=== PATIENT | male | born 1965 | race African-American/Black ===

== ENCOUNTER 2018-02-28 11:27 | Inpatient (IN) ==
[2018-02-28] MEDS ORDERED: ONDANSETRON 4 MG/2 ML VIAL IV STA (13:00)
[2018-02-28] MEDS ORDERED: MORPHINE 4 MG/1 ML VIAL IV STA (13:00)
[2018-02-28] MEDS ORDERED: CEFTAROLINE 600 MG in SODIUM CHLORIDE 0.9% 100 ML IV STA (14:06)
[2018-02-28] MEDS ORDERED: ACETAMINOPHEN 500 MG TABLET PO STA (14:06)
[2018-02-28] MEDS ORDERED: ACETAMINOPHEN 500 MG TABLET ONE (14:07)
[2018-02-28] MEDS ORDERED: MORPHINE 4 MG/1 ML VIAL ONE (14:07)
[2018-02-28] MEDS ORDERED: ONDANSETRON 4 MG/2 ML VIAL ONE (14:07)
[2018-02-28 14:16] LABS: Basophils # 0.1 10*3/uL (0.0-0.2); Basophils % 0.3 % (0.0-0.8); Hematocrit 38.5 VOL% (42.0-52.0); Hemoglobin 11.8 GM/DL (14.0-18.0); Immature Granulocytes % 0.7 %; Immature Granulocytes Absolute 0.19 #; Lymphocytes # 1.8 10*3/uL (1.4-4.0); Lymphocytes % 6.4 % (21.2-54.2); Mean Corpuscular HGB Conc 30.6 GM/DL (32-36); Mean Corpuscular Hemoglobin 22 PG (27-34); Mean Corpuscular Volume 71.6 FL (87-102); Mean Platelet Volume 11.9 FL (9.6-12.0); Monocytes # 1.8 10*3/uL (0.11-0.8); Monocytes % 6.6 % (1.7-12.7); Neutrophils # 23.4 10*3/uL (1.4-7.4); Platelet Count 240 T/CUMM (130-400); Red Blood Count 5.38 MC/CUMM (3.8-5.5); Red Cell Distribution Width 15.3 % (9.3-17.3); White Blood Count 27.2 T/CUMM (4-12)
[2018-02-28] MEDS ORDERED: PROMETHAZINE 25 MG/1 ML VIAL IM PRN (14:22)
[2018-02-28] MEDS ORDERED: ACETAMINOPHEN 325 MG TABLET PO PRN (14:22)
[2018-02-28] MEDS ORDERED: ONDANSETRON 4 MG/2 ML VIAL IV PRN (14:22)
[2018-02-28 14:32] LABS: PT Patient Result 11.2 SECS
[2018-02-28 14:41] LABS: Band Neutrophils 9 % (0-10); Lymphocytes 5 % (20-55); Platelet Estimate Adequate; Segmented Neutrophils 80 % (50-85); Target Cells Few; Total Cells Counted 100
[2018-02-28] MEDS ORDERED: CLINDAMYCIN INJ 600 MG in PREMIX 1 EACH IV STA (14:42)
[2018-02-28 14:43] LABS: Alanine Aminotransferase 28 U/L (16-61); Albumin 3.3 G/DL (3.4-5.0); Alkaline Phosphatase 69 U/L (45-117); Aspartate Amino Transferase 23 U/L (0-37); Blood Urea Nitrogen 10 MG/DL (7-18); Calcium 8.7 MG/DL (8.5-10.1); Glucose 104 MG/DL (74-106); Osmolality,Calculated 268.1 MOS/KG (273-304); Potassium 3.9 MMOL/L (3.5-5.1); Sodium 135 MMOL/L (136-145); Total Protein 8.5 G/DL (6.4-8.3); Troponin I < 0.015 NG/ML (0.00-0.045)
[2018-02-28] MEDS ORDERED: VANCOMYCIN INJ 1,500 MG in SODIUM CHLORIDE 0.9% 500 ML IV STA (14:43)
[2018-02-28] MEDS ORDERED: SODIUM CHLORIDE 0.9% 1,000 ML IV STA (14:46)
[2018-02-28] MEDS ORDERED: SODIUM CHLORIDE 0.9% 2,000 ML IV STA (14:47)
[2018-02-28] MEDS ORDERED: CLINDAMYCIN INJ 0 ML IV ONE (14:53)
[2018-02-28] MEDS ORDERED: CLINDAMYCIN INJ 600 MG in PREMIX 1 EACH IV SCH (15:00)
[2018-02-28] MEDS ORDERED: VANCOMYCIN 1,000 MG VIAL ONE ×2 (15:05→15:12)
[2018-02-28] MEDS ORDERED: VANCOMYCIN INJ 500 MG in SODIUM CHLORIDE 0.9% 100 ML IV STA (15:33)
[2018-02-28 16:38] LABS: Apearance,Urine CLEAR (Clear); Bilirubin,Urine Negative (Negative); Blood, Urine Negative (Negative); Glucose,Urine (UA) Negative (Negative); Ketones,Urine Negative (Negative); Mucus,Urine Occasional /LPF (Occasional); Nitrite,Urine Negative (Negative); Protein,Urine 100 MG/DL; RBC,Urine 1 /HPF (0-4); Urine Color Dark yellow (Yellow); WBC,Urine 1 /HPF (0-6)
[2018-02-28] MEDS: PANTOPRAZOLE 40 MG TABLET PO SCH (18:40)
[2018-02-28] MEDS: SODIUM CHLORIDE 0.9% 1,000 ML IV SCH ×2 (19:02→22:00)
[2018-02-28] MEDS: ENOXAPARIN 40 MG/0.4 ML SYRINGE SUBCUT SCH (22:58)
[2018-03-01] MEDS: CEFTAROLINE 600 MG in SODIUM CHLORIDE 0.9% 100 ML IV SCH ×2 (02:23→14:47)
[2018-03-01] MEDS: SODIUM CHLORIDE 0.9% 1,000 ML IV SCH ×3 (03:34→12:14)
[2018-03-01 05:07] LABS: Basophils # 0.1 10*3/uL (0.0-0.2); Basophils % 0.3 % (0.0-0.8); Eosinophils % 0.3 % (0.00-10.9); Hematocrit 32.2 VOL% (42.0-52.0); Hemoglobin 9.9 GM/DL (14.0-18.0); Immature Granulocytes % 0.6 %; Lymphocytes # 1.7 10*3/uL (1.4-4.0); Lymphocytes % 11.1 % (21.2-54.2); Mean Corpuscular HGB Conc 30.7 GM/DL (32-36); Mean Corpuscular Hemoglobin 22 PG (27-34); Mean Corpuscular Volume 71.7 FL (87-102); Mean Platelet Volume 11.6 FL (9.6-12.0); Monocytes # 1.7 10*3/uL (0.11-0.8); Monocytes % 11.1 % (1.7-12.7); Neutrophils # 11.8 10*3/uL (1.4-7.4); Neutrophils % 76.6 % (38.7-73.9); Platelet Count 198 T/CUMM (130-400); Red Blood Count 4.49 MC/CUMM (3.8-5.5); Red Cell Distribution Width 15.4 % (9.3-17.3); White Blood Count 15.4 T/CUMM (4-12)
[2018-03-01 05:29] LABS: % Iron Saturation 5.4 % (18-50); Ferritin 679.6 ng/ml (26-388)
[2018-03-01 05:34] LABS: Albumin 2.7 G/DL (3.4-5.0); Bilirubin,Total 1.4 MG/DL (0.2-1.0); Calcium 7.6 MG/DL (8.5-10.1); Osmolality,Calculated 273.7 MOS/KG (273-304); Potassium 3.9 MMOL/L (3.5-5.1); Risk Ratio 4.31; Thyroid Stimulating Hormone 0.735 uIU/ml (0.358-3.74); Total Protein 7.1 G/DL (6.4-8.3); VLDL CHOLESTEROL 30.2 MG/DL
[2018-03-01 06:06] LABS: Folate 12.5 NG/ML (5.4-24.0)
[2018-03-01] MEDS ORDERED: CYANOCOBALAMIN 1000 MCG/1 ML VIAL IM ONE (09:06)
[2018-03-01] MEDS: FERROUS SULFATE 325 MG TABLET PO SCH ×2 (09:30→21:03)
[2018-03-01] MEDS: PANTOPRAZOLE 40 MG TABLET PO SCH (09:30)
[2018-03-01] MEDS: metFORMIN 500 MG TABLET PO SCH (17:34)
[2018-03-01] MEDS: ENOXAPARIN 40 MG/0.4 ML SYRINGE SUBCUT SCH (21:03)
[2018-03-02] MEDS: CEFTAROLINE 600 MG in SODIUM CHLORIDE 0.9% 100 ML IV SCH (02:20)
[2018-03-02] MEDS: SODIUM CHLORIDE 0.9% 1,000 ML IV SCH (04:42)
[2018-03-02 04:54] LABS: Basophils % 0.4 % (0.0-0.8); Eosinophils # 0.3 10*3/uL (0.0-0.87); Eosinophils % 2.9 % (0.00-10.9); Hematocrit 31.5 VOL% (42.0-52.0); Hemoglobin 9.7 GM/DL (14.0-18.0); Immature Granulocytes % 0.6 %; Immature Granulocytes Absolute 0.06 #; Lymphocytes # 1.6 10*3/uL (1.4-4.0); Lymphocytes % 14.5 % (21.2-54.2); Mean Corpuscular HGB Conc 30.8 GM/DL (32-36); Mean Corpuscular Hemoglobin 22 PG (27-34); Mean Corpuscular Volume 71.1 FL (87-102); Mean Platelet Volume 11.9 FL (9.6-12.0); Monocytes # 1.3 10*3/uL (0.11-0.8); Monocytes % 12.2 % (1.7-12.7); Neutrophils # 7.5 10*3/uL (1.4-7.4); Neutrophils % 69.4 % (38.7-73.9); Platelet Count 227 T/CUMM (130-400); Red Blood Count 4.43 MC/CUMM (3.8-5.5); Red Cell Distribution Width 15.3 % (9.3-17.3); White Blood Count 10.9 T/CUMM (4-12)
[2018-03-02 05:11] LABS: Calcium 8.1 MG/DL (8.5-10.1); Osmolality,Calculated 269.1 MOS/KG (273-304); Potassium 3.8 MMOL/L (3.5-5.1)
[2018-03-02] MEDS: PANTOPRAZOLE 40 MG TABLET PO SCH (08:17)
[2018-03-02] MEDS: FERROUS SULFATE 325 MG TABLET PO SCH (08:17)
[2018-03-02] MEDS: metFORMIN 500 MG TABLET PO SCH (08:17)
[2018-03-02] MEDS ORDERED: cephALEXin 500 MG CAPSULE PO SCH (11:00)
[2018-03-02 11:51] VITALS: BP 160/97
== END 2018-03-02 12:50 | disposition home or self-care (01) | DRG 603 ==
LOC: N.ED 11:27 → SUATTDRO 14:22 → N.EDINP 14:22 → N.2E 17:47
PROVIDERS: ADMIT Internal Medicine Cardiovascular Disease; ATTEND Internal Medicine

== ENCOUNTER 2020-01-17 05:56 | Inpatient (IN) ==
[2020-01-17] MEDS ORDERED: MIDAZOLAM 2 MG/2 ML VIAL ONE (06:21)
[2020-01-17] MEDS ORDERED: TRANEXAMIC ACID 1,000 MG/10 ML VIAL ONE (06:21)
[2020-01-17] MEDS ORDERED: fentaNYL 100 MCG/2 ML VIAL ONE ×3 (06:21→08:46)
[2020-01-17] MEDS ORDERED: ROPIVACAINE 0.5% 30 ML VIAL ONE (06:23)
[2020-01-17] MEDS ORDERED: VANCOMYCIN INJ 1,000 MG in SODIUM CHLORIDE 0.9% 250 ML IV ONE (06:30)
[2020-01-17] MEDS ORDERED: ceFAZolin 1,000 MG in SYRINGE 1 EACH IV ONE (06:30)
[2020-01-17] MEDS ORDERED: DEXAMETHASONE 4 MG/1 ML VIAL ONE ×2 (06:49→07:30)
[2020-01-17] MEDS: LACTATED RINGERS 1,000 ML IV SCH (06:52)
[2020-01-17] MEDS ORDERED: propofoL 200 MG/20 ML VIAL IV ONE (07:30)
[2020-01-17] MEDS ORDERED: ACETAMINOPHEN 1,000 MG/100 ML VIAL IV ONE (07:30)
[2020-01-17] MEDS ORDERED: LIDOCAINE 2% 5 ML VIAL ONE (07:30)
[2020-01-17] MEDS ORDERED: ONDANSETRON 4 MG/2 ML VIAL ONE (07:30)
[2020-01-17] MEDS ORDERED: ROCURONIUM 50 MG/5 ML VIAL IV ONE (07:30)
[2020-01-17] MEDS ORDERED: KETOROLAC 30 MG/1 ML VIAL ONE (08:24)
[2020-01-17] MEDS ORDERED: ePHEDrine 50 MG/ML VIAL ONE (08:26)
[2020-01-17] MEDS ORDERED: NEOSTIGMINE 10 MG/10 ML VIAL ONE (08:40)
[2020-01-17] MEDS ORDERED: GLYCOPYRROLATE 0.4 MG/2 ML VIAL ONE (08:40)
[2020-01-17] MEDS ORDERED: TEMAZEPAM 7.5 MG CAPSULE PO PRN (08:51)
[2020-01-17] MEDS ORDERED: ONDANSETRON 4 MG/2 ML VIAL IV PRN ×2 (08:51→09:19)
[2020-01-17] MEDS ORDERED: PROMETHAZINE 25 MG/1 ML VIAL IM PRN (08:51)
[2020-01-17] MEDS ORDERED: BISACODYL 10 MG SUPP RECTAL PRN (08:51)
[2020-01-17] MEDS ORDERED: LACTULOSE 20 GM/30 ML UDCUP PO PRN (08:51)
[2020-01-17] MEDS ORDERED: MAGNESIUM HYDROXIDE SUSP 30 ML UDCUP PO PRN (08:51)
[2020-01-17] MEDS ORDERED: diphenhydrAMINE CAP 25 MG CAPSULE PO PRN (08:51)
[2020-01-17] MEDS ORDERED: SEVOFLURANE 1 UNIT/15 MINUTE INH ONE (09:11)
[2020-01-17] MEDS: HYDROmorphone 2 MG/1 ML VIAL IV PRN ×4 (09:26→09:54)
[2020-01-17] MEDS ORDERED: MORPHINE 4 MG/1 ML VIAL IV PRN (09:33)
[2020-01-17] MEDS: LOSARTAN 50 MG TABLET PO SCH (11:11)
[2020-01-17] MEDS: FUROSEMIDE 20 MG TABLET PO SCH (11:11)
[2020-01-17] MEDS: DOCUSATE SODIUM 100 MG CAPSULE PO SCH ×2 (11:12→21:32)
[2020-01-17] MEDS: CHOLECALCIFEROL 1,000 UNIT TABLET PO SCH (11:12)
[2020-01-17] MEDS: MORPHINE 4 MG/1 ML VIAL IV PRN ×2 (11:53→16:22)
[2020-01-17] MEDS: ceFAZolin 2,000 MG in PREMIX 1 EACH IV SCH ×2 (14:24→21:20)
[2020-01-17] MEDS: FERROUS SULFATE 325 MG TABLET PO SCH (17:03)
[2020-01-17] MEDS: FONDAPARINUX 2.5 MG/0.5 ML SYRINGE SUBCUT SCH (21:20)
[2020-01-18 04:51] LABS: Basophils % 0.1 % (0.0-0.8); Hematocrit 32.6 VOL% (42.0-52.0); Hemoglobin 10.3 GM/DL (14.0-18.0); Immature Granulocytes % 0.5 %; Immature Granulocytes Absolute 0.07 #; Lymphocytes # 1.3 10*3/uL (1.4-4.0); Lymphocytes % 9.5 % (21.2-54.2); Mean Corpuscular HGB Conc 31.6 GM/DL (32-36); Mean Corpuscular Volume 71.2 FL (87-102); Mean Platelet Volume 11.5 FL (9.6-12.0); Monocytes % 10.1 % (1.7-12.7); Neutrophils % 79.8 % (38.7-73.9); Platelet Count 233 T/CUMM (130-400); Red Blood Count 4.58 MC/CUMM (3.8-5.5); Red Cell Distribution Width 15.5 % (9.3-17.3); White Blood Count 14.1 T/CUMM (4-12)
[2020-01-18 05:20] LABS: Calcium 8.6 MG/DL (8.5-10.1); Osmolality,Calculated 277.8 MOS/KG (273-304); Potassium 4.7 MMOL/L (3.5-5.1)
[2020-01-18] MEDS: LACTATED RINGERS 1,000 ML IV SCH (09:15)
[2020-01-18] MEDS: FUROSEMIDE 20 MG TABLET PO SCH (09:24)
[2020-01-18] MEDS: DOCUSATE SODIUM 100 MG CAPSULE PO SCH ×2 (09:24→21:34)
[2020-01-18] MEDS: INDOMETHACIN 25 MG CAPSULE PO SCH (09:25)
[2020-01-18] MEDS: COLCHICINE 0.6 MG CAPSULE PO SCH (09:25)
[2020-01-18] MEDS: CHOLECALCIFEROL 1,000 UNIT TABLET PO SCH (09:26)
[2020-01-18] MEDS: LOSARTAN 50 MG TABLET PO SCH (09:26)
[2020-01-18] MEDS: PROBENECID 500 MG TABLET PO SCH (09:26)
[2020-01-18] MEDS: amLODIPine 5 MG TABLET PO SCH (09:26)
[2020-01-18] MEDS: FERROUS SULFATE 325 MG TABLET PO SCH ×2 (09:26→16:06)
[2020-01-19] MEDS: LACTATED RINGERS 1,000 ML IV SCH (07:39)
[2020-01-19] MEDS: COLCHICINE 0.6 MG CAPSULE PO SCH (09:37)
[2020-01-19] MEDS: FUROSEMIDE 20 MG TABLET PO SCH (09:37)
[2020-01-19] MEDS: LOSARTAN 50 MG TABLET PO SCH (09:37)
[2020-01-19] MEDS: INDOMETHACIN 25 MG CAPSULE PO SCH (09:37)
[2020-01-19] MEDS: CHOLECALCIFEROL 1,000 UNIT TABLET PO SCH (09:37)
[2020-01-19] MEDS: ASPIRIN EC 325 MG TABLET PO SCH (09:38)
[2020-01-19] MEDS: PROBENECID 500 MG TABLET PO SCH (09:38)
[2020-01-19] MEDS: FERROUS SULFATE 325 MG TABLET PO SCH ×2 (09:38→16:05)
[2020-01-19] MEDS: amLODIPine 5 MG TABLET PO SCH (09:38)
[2020-01-19] MEDS: DOCUSATE SODIUM 100 MG CAPSULE PO SCH ×2 (09:38→21:01)
[2020-01-19] MEDS: MORPHINE 4 MG/1 ML VIAL IV PRN (13:35)
[2020-01-19] MEDS: FONDAPARINUX 2.5 MG/0.5 ML SYRINGE SUBCUT SCH (21:03)
[2020-01-20] MEDS: LACTATED RINGERS 1,000 ML IV SCH (02:59)
[2020-01-20] MEDS: DOCUSATE SODIUM 100 MG CAPSULE PO SCH (08:37)
[2020-01-20] MEDS: ASPIRIN EC 325 MG TABLET PO SCH (08:38)
[2020-01-20] MEDS: COLCHICINE 0.6 MG CAPSULE PO SCH (08:39)
[2020-01-20] MEDS: FUROSEMIDE 20 MG TABLET PO SCH (08:39)
[2020-01-20] MEDS: CHOLECALCIFEROL 1,000 UNIT TABLET PO SCH (08:39)
[2020-01-20] MEDS: amLODIPine 5 MG TABLET PO SCH (08:39)
[2020-01-20] MEDS: LOSARTAN 50 MG TABLET PO SCH (08:39)
[2020-01-20] MEDS: INDOMETHACIN 25 MG CAPSULE PO SCH (08:39)
[2020-01-20] MEDS: FERROUS SULFATE 325 MG TABLET PO SCH (08:39)
[2020-01-20] MEDS ORDERED: PROBENECID 500 MG TABLET PO SCH (09:00)
[2020-01-20 11:54] VITALS: BP 122/68
== END 2020-01-20 14:56 | disposition home health service (06) | DRG 488 ==
LOC: N.OR 05:56 → N.SDSINP 05:58 → N.3E 08:49
PROVIDERS: ADMIT Orthopaedic Surgery; ATTEND Orthopaedic Surgery